=== PATIENT | female | born 1980 ===

== ENCOUNTER → 2018-09-23 | Outpatient (CLI) | payer OTHER | END | disposition home or self-care (01) | LOC: NST 14:20 | DX: Z34.82 Encounter for supervision of other normal pregnancy, second trimester (principal) ==

== ENCOUNTER 2019-01-05 11:05 | Outpatient (CLI) | payer OTHER | END 2019-01-05 13:15 | disposition home or self-care (01) | LOC: NST 11:05 | DX: Z34.83 Encounter for supervision of other normal pregnancy, third trimester (principal) ==